=== PATIENT | female | born 1960 | race African-American/Black ===

== ENCOUNTER 2018-11-15 13:10 | Emergency (ER) | payer OTHER ==
[2018-11-15 13:30] VITALS: BP 153/60; PULSE 80; TEMP 98.3; BMI 45.6
--- NOTE | 2018-11-15 14:27 | PDOC ---
History of Present Illness - General Chief Complaint: Pain Stated Complaint: UTERUIS PAIN Time Seen by Provider: 11/15/18 13:57 History Source: Patient Exam Limitations: No Limitations - History of Present Illness Travel History: No Initial Comments: 11/15/18 14:40 58-year-old female presents to ED with complaints of intermittent burning suprapubic region feeling as if there is strep building up. 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 Timing/Duration: reports: intermittent Quality: reports: mild, burning Abdominal Pain Onset Location: reports: suprapubic Pain Radiation: reports: no radiation Activities at Onset: reports: none Aggravating Factors: improves with: None Alleviating Factors: improves with: None Past History - Travel Traveled outside of the country in the last 30 days: No Close contact w/someone who was outside of country & ill: No - Past Medical History Allergies/Adverse Reactions: Allergies Allergy/AdvReac Type Severity Reaction Status Date / Time No Known Allergies Allergy Verified 11/15/18 13:27 Home Medications: Ambulatory Orders Aspirin [Aspirin EC] 81 mg PO DAILY 01/18/16 Calcium Carbonate/Vitamin D3 [Calcium 600 + Vit D 400 Softgl] 1 each PO DAILY Cholecalciferol (Vitamin D3) [Vitamin D3] 2,000 unit PO DAILY 01/18/16 Gabapentin 400 mg PO TID 01/18/16 Hydrochlorothiazide [Hctz -] 50 mg PO HS 01/18/16 Insulin Glargine,Hum.rec.anlog [Lantus Solostar PEN -] 100 units SQ HS 01/18/16 Insulin Regular [Novolin R Vial -] 15 unit SQ TID 01/18/16 Nebivolol HCl [Bystolic] 10 mg PO HS 01/18/16 Oxycodone HCl/Acetaminophen [Percocet 5-325 mg Tablet] 1 tab PO Q4H PRN Simvastatin [Zocor -] 1 tab PO HS 01/18/16 Lisinopril 10 mg PO DAILY 01/19/16 Anemia: No Asthma: No Cancer: No Cardiac Disorders: No CVA: No COPD: No CHF: No Dementia: No Diabetes: Yes (IDDM [id number] 02/09/16) GI Disorders: Yes (GERD) Disorders: No HTN: Yes Hypercholesterolemia: Yes Seizures: No Thyroid Disease: No - Surgical History Abdominal Surgery: No Appendectomy: No Cardiac Surgery: No Cholecystectomy: No Lung Surgery: No Neurologic Surgery: No Orthopedic Surgery: No - Suicide/Smoking/Psychosocial Hx Smoking History: Never smoked Have you smoked in the past 12 months: No Information on smoking cessation initiated: No Hx Alcohol Use: No Drug/Substance Use Hx: No Substance Use Type: None Hx Substance Use Treatment: No Patient Lives Alone: No Lives with/in: spouse/SO Review of Systems - Review of Systems Able to Perform ROS?: Yes Constitutional: No: Symptoms Reported ABD/GI: Yes: Other : Yes: Burning Musculoskeletal: No: Symptoms Reported Integumentary: No: Symptoms Reported Neurological: No: Symptoms reported Endocrine: No: Symptoms Reported Hematologic/Lymphatic: No: Symptoms Reported *Physical Exam - Vital Signs Last Vital Signs Temp Pulse Resp BP Pulse Ox 98.3 F 80 16 153/60 100 11/15/18 13:27 11/15/18 13:27 11/15/18 13:27 11/15/18 13:27 11/15/18 13:27 - Physical Exam General Appearance: Yes: Nourished, Appropriately Dressed. No: Apparent Distress HEENT: negative: Pale Conjunctivae Neck: positive: Normal Thyroid Respiratory/Chest: positive: Lungs Clear, Normal Breath Sounds. negative: Respiratory Distress, Accessory Muscle Use Cardiovascular: positive: Regular Rhythm, Regular Rate. negative: Murmur Female Pelvic Exam: positive: normal external exam. negative: CMT, discharge, adnexal tenderness, vaginal bleeding Gastrointestinal/Abdominal: positive: Normal Bowel Sounds ( mid suprapubic), Soft, Tenderness (mid suprapubic). negative: Distended Musculoskeletal: negative: CVA Tenderness Extremity: negative: Pedal Edema Integumentary: positive: Normal Color, Warm, Moist. negative: Erythema Neurologic: positive: Motor Strength 5/5 (ambulatory) Moderate Sedation - Procedure Monitoring Vital Signs: Procedure Monitoring Vital Signs Temperature 98.3 F 11/15/18 13:27 Pulse Rate 80 11/15/18 13:27 Respiratory Rate 16 11/15/18 13:27 Blood Pressure 153/60 11/15/18 13:27 O2 Sat by Pulse Oximetry (%) 100 11/15/18 13:27 ED Treatment Course - LABORATORY CBC & Chemistry Diagram: 11/15/18 14:21 11/15/18 14:21 Medical Decision Making - Medical Decision Making 11/15/18 15:23 CC: Patient suprapubic tenderness complaining of burning and pressure to the vaginal area. Exam: Suprapubic tenderness on exam. No other acute findings. Plan: Labs urine and ultrasound ordered. 11/15/18 15:24 Laboratory Tests 11/15/18 11/15/18 14:21 14:21 WBC 9.2 Hgb 13.2 Hct 38.1 Neutrophils % 71.8 Sodium 141 Potassium 4.0 Chloride 105 Carbon Dioxide 30 Anion Gap 6 L BUN 16 Random Glucose 154 H Calcium 9.7 Total Bilirubin 1.0 AST 18 ALT 19 Alkaline Phosphatase 127 H Total Protein 7.4 Albumin 3.4 11/15/18 16:19 ultrasound shows submucosal uterine fibroid otherwise normal pelvic sonogram. 11/15/18 17:17 Laboratory Tests 11/15/18 16:20 Ur Specific [place] 1.009 L Urine Blood 1+ H Ur Leukocyte Esterase Negative Urine WBC (Auto) <1 Urine RBC (Auto) 1 *DC/Admit/Observation/Transfer Diagnosis at time of Disposition: Abdominal pain - Discharge Dispostion Disposition: HOME Condition at time of disposition: Good - Referrals Referrals: Lucretia Wallis [Primary Care Provider] - - Patient Instructions Printed Discharge Instructions: DI for Abdominal Pain-Adult Additional Instructions: Please follow up with your [facility]. If symptoms worsen , return to the ED - Post Discharge Activity
--- NOTE | 2018-11-15 14:30 | PDOC ---
*Physical Exam - Vital Signs Last Vital Signs Temp Pulse Resp BP Pulse Ox 98.3 F 80 16 153/60 100 11/15/18 13:27 11/15/18 13:27 11/15/18 13:27 11/15/18 13:27 11/15/18 13:27 ED Treatment Course - LABORATORY CBC & Chemistry Diagram: 11/15/18 14:21 11/15/18 14:21 Medical Decision Making - Medical Decision Making 11/15/18 14:30 Pt seen by Midlevel Provider under my direct supervision Pt interviewed and examined Ancillary studies reviewed I agree with plan as outlined by Midlevel Provider *DC/Admit/Observation/Transfer - Referrals Referrals: Lucretia Wallis [Primary Care Provider] - - Patient Instructions - Post Discharge Activity
[2018-11-15 14:31] LABS: BASO % 0.8 % (0-2.0); EOS % 0.9 % (0-4.5); HEMATOCRIT 38.1 % (32.4-45.2); HEMOGLOBIN 13.2 GM/dL (10.7-15.3); LYMPH % 21.9 % (8-40); MCH 30.9 pg (25.7-33.7); MCHC 34.6 g/dl (32.0-36.0); MEAN CELL VOLUME 89.1 fl (80-96); MEAN PLT VOLUME 7.6 fl (7.5-11.1); MONO % 4.6 % (3.8-10.2); NEUT % 71.8 % (42.8-82.8); PLATELET COUNT 370 K/MM3 (134-434); RBC 4.28 M/mm3 (3.60-5.2); RDW 14.2 % (11.6-15.6); WHITE BLOOD COUNT 9.2 K/mm3 (4.0-10.0)
[2018-11-15 14:49] LABS: ALBUMIN 3.4 g/dl (3.4-5.0); ALK PHOS 127 U/L (45-117); ANION GAP 6 MMOL/L (8-16); BLOOD UREA NITROGEN 16 mg/dL (7-18); CALCIUM 9.7 mg/dL (8.5-10.1); CHLORIDE 105 mmol/L (98-107); CO2 30 mmol/L (21-32); CREATININE 1.1 mg/dL (0.55-1.3); GLUCOSE,RANDOM 154 mg/dL (74-106); SGOT/AST 18 U/L (15-37); SGPT/ALT 19 U/L (13-61); SODIUM 141 mmol/L (136-145); TOT PROT 7.4 g/dl (6.4-8.2)
[2018-11-15 16:48] LABS: URINE APPEARANCE CLEAR; URINE BILIRUBIN NEGATIVE (<2.0 mg/dL); URINE COLOR LTYELLOW; URINE GLUCOSE (UA) NEGATIVE (NEGATIVE); URINE KETONE NEGATIVE (NEGATIVE); URINE LEUK ESTERASE NEGATIVE (NEGATIVE); URINE NITRITE NEGATIVE (NEGATIVE); URINE PROTEIN 1+ (NEGATIVE); URINE UROBILINOGEN NEGATIVE mg/dL (0.2-1.0)
[2018-11-15 17:14] LABS: EPI CELLS RARE /HPF (FEW); URINE BACTERIA RARE /hpf (NONE SEEN); URINE MUCUS RARE
== END 2018-11-15 17:21 | disposition home or self-care (01) ==
LOC: JER 13:10
DX: D25.0 Submucous leiomyoma of uterus (principal); I10 Essential (primary) hypertension; E78.00 Pure hypercholesterolemia, unspecified; E11.9 Type 2 diabetes mellitus without complications; Z79.4 Long term (current) use of insulin; K21.9 Gastro-esophageal reflux disease without esophagitis
CPT/HCPCS: 36415; 76830-TC; 76856-TC; 80053; 81003; 81015; 85025; 87086; 99283-25

== ENCOUNTER 2020-12-16 04:34 | Day surgery (SDC) | payer OTHER ==
[2020-12-10 16:14] VITALS: BMI 45.6
[~2020-12-16 04:34] MED LIST: ACETAMINOPHEN 325 MG TABLET (FP) PO PRN; BSS (NA/CA/MG/K) BALANCED SALT SOLUTION OPHTH SOLN 15 ML BOTTLE OS ONE; CHONDROITIN SU A/HYALUR SOD 1 KIT IO ONE; CYCLOPENTOLATE HCL 1% OPHTH SOLN 2 ML BOTTLE OP SCH; EPINEPHrine/PF 1 MG/1 ML (1:1,000) AMPULE SQ ONE; KETOROLAC TROMETHAMINE 0.5% EYE DROP 1 DROP DROPS OP SCH; LIDOCAINE HCL 1% PRESERVATIVE FREE - 30ML VIAL IO ONE; OFLOXACIN 0.3% OPHTHALMIC SOLUTION 5 ML BOTTLE OP SCH; PHENYLEPHRINE 2.5% OPHTH SOLN 15 ML BOTTLE OP SCH; POVIDONE-IODINE 5% OPHTHALMIC PREP 30 ML SOLUTION OS ONE; TROPICAMIDE 1% OPHTH SOLN 15 ML BOTTLE OP SCH
[2020-12-16] MEDS ORDERED: BSS (NA/CA/MG/K) BALANCED SALT SOLUTION OPHTH SOLN 15 ML BOTTLE ONE (07:18)
[2020-12-16] MEDS ORDERED: POVIDONE-IODINE 5% OPHTHALMIC PREP 30 ML SOLUTION ONE (07:18)
[2020-12-16] MEDS ORDERED: CHONDROITIN SU A/HYALUR SOD 1 KIT ONE (07:19)
[2020-12-16] MEDS ORDERED: TETRACAINE 0.5% OPHTH SOLN 2 ML BOTTLE ONE (07:19)
[2020-12-16] MEDS ORDERED: LIDOCAINE HCL/PF 1% SDV 5ML VIAL ONE (07:30)
[2020-12-16] MEDS ORDERED: TROPICAMIDE 1% OPHTH SOLN 15 ML BOTTLE ONE ×2 (07:50→08:00)
[2020-12-16] MEDS ORDERED: CYCLOPENTOLATE HCL 1% OPHTH SOLN 2 ML BOTTLE ONE ×2 (07:51→08:00)
[2020-12-16] MEDS ORDERED: OFLOXACIN 0.3% OPHTHALMIC SOLUTION 5 ML BOTTLE ONE ×2 (07:51→08:00)
[2020-12-16] MEDS ORDERED: KETOROLAC TROMETHAMINE 0.5% EYE DROP 1 DROP DROPS ONE ×2 (07:51→08:00)
[2020-12-16] MEDS ORDERED: PHENYLEPHRINE 2.5% OPTHALMIC DROP BOTTLE ONE ×2 (07:52→08:00)
[2020-12-16 08:24] VITALS: TEMP 97.7
[2020-12-16] MEDS ORDERED: CYCLOPENTOLATE HCL 1% OPHTH SOLN 2 ML BOTTLE OS ONE ×3 (08:30→08:50)
[2020-12-16] MEDS ORDERED: PHENYLEPHRINE 2.5% OPHTH SOLN 15 ML BOTTLE OS ONE ×3 (08:30→08:50)
[2020-12-16] MEDS ORDERED: KETOROLAC TROMETHAMINE 0.5% EYE DROP 1 DROP DROPS OS ONE ×3 (08:30→08:50)
[2020-12-16] MEDS ORDERED: OFLOXACIN 0.3% OPHTHALMIC SOLUTION 5 ML BOTTLE OS ONE ×3 (08:30→08:50)
[2020-12-16] MEDS ORDERED: TROPICAMIDE 1% OPHTH SOLN 15 ML BOTTLE OS ONE ×3 (08:30→08:50)
[2020-12-16] MEDS ORDERED: MIDAZOLAM HCL 2 MG/2 ML SINGLE DOSE VIAL ONE (10:03)
[2020-12-16] MEDS ORDERED: TETRACAINE 0.5% OPHTH SOLN 2 ML BOTTLE TP ONE (10:26)
[2020-12-16] MEDS ORDERED: POVIDONE-IODINE 5% OPHTHALMIC PREP 30 ML SOLUTION OS ONE (10:27)
[2020-12-16] MEDS ORDERED: BSS (NA/CA/MG/K) BALANCED SALT SOLUTION OPHTH SOLN 15 ML BOTTLE OS ONE (10:33)
[2020-12-16] MEDS ORDERED: LIDOCAINE HCL 1% PRESERVATIVE FREE - 30ML VIAL IO ONE (10:35)
[2020-12-16] MEDS ORDERED: CHONDROITIN SU A/HYALUR SOD 1 KIT IO ONE (10:35)
[2020-12-16] MEDS ORDERED: EPINEPHrine/PF 1 MG/1 ML (1:1,000) AMPULE SQ ONE (10:42)
[2020-12-16] MEDS ORDERED: ACETAMINOPHEN 325 MG TABLET (FP) ONE (11:35)
[2020-12-16] MEDS ORDERED: ACETAMINOPHEN 325 MG TABLET (FP) PO ONE (11:35)
[2020-12-16 12:43] VITALS: BP 160/60; PULSE 66
== END 2020-12-16 11:50 | disposition home or self-care (01) ==
LOC: JASU-SURG 04:34
PROVIDERS: ATTEND Ophthalmology
PROC: 08RK3JZ Replacement of Left Lens with Synthetic Substitute, Percutaneous Approach (ICD-10-PCS; principal; 2020-12-16 10:00)
DX: H26.9 Unspecified cataract (principal); E11.9 Type 2 diabetes mellitus without complications; I10 Essential (primary) hypertension; E66.01 Morbid (severe) obesity due to excess calories; G47.30 Sleep apnea, unspecified
CPT/HCPCS: 82962